=== PATIENT | male | born 1955 | race Caucasian/White ===

== ENCOUNTER 2017-01-03 08:00 | Outpatient (CLI) | payer MEDICARE ==
[2017-01-03 13:29] LABS: BASOPHILS % (AUTO) 0.8 %; EOSINOPHILS # (AUTO) 0.3 10^3/uL (0.0-0.7); EOSINOPHILS % (AUTO) 5.4 %; HCT - HEMATOCRIT 41.3 % (42.0-52.0); HGB - HEMOGLOBIN 14.5 g/dL (14.0-18.0); LYMPHOCYTES % (AUTO) 39.7 %; MEAN CORPUSCULAR HEMOGLOBIN 33.9 pg (27.0-31.0); MEAN CORPUSCULAR HGB CONC 35.1 g/dL (32.0-36.0); MEAN CORPUSCULAR VOLUME 96.5 fL (80.0-94.0); MEAN PLATELET VOLUME 8.8 fL (7.4-11.4); MONOCYTES # (AUTO) 0.5 10^3/uL (0.0-1.0); MONOCYTES % (AUTO) 9.9 %; NEUTROPHILS # (AUTO) 2.3 10^3/uL (1.5-6.6); NEUTROPHILS % (AUTO) 44.2 %; RED BLOOD COUNT 4.28 10^6/uL (4.70-6.10); RED CELL DISTRIBUTION WIDTH 13.3 % (12.0-15.0); UNCORRECTED WHITE BLOOD COUNT 5.1 x10^3/uL; WHITE BLOOD COUNT 5.1 x10^3/uL (4.8-10.8)
[2017-01-03 13:43] LABS: ALBUMIN/GLOBULIN RATIO 1.7 (1.0-2.2); BILIRUBIN,TOTAL 1.6 mg/dL (0.2-1.0); CALCIUM 9.1 mg/dL (8.5-10.3); CREATININE 0.8 mg/dL (0.6-1.2); POTASSIUM 4.1 mmol/L (3.5-5.0); TOTAL PROTEIN 6.8 g/dL (6.7-8.2)
== END 2017-01-03 08:01 | disposition home or self-care (01) ==
LOC: LAB.WCP 08:00
PROVIDERS: ATTEND Family Medicine
DX: I10 Essential (primary) hypertension (principal)
CPT/HCPCS: 36415; 80053; 85025

== ENCOUNTER 2017-06-29 11:12 | Outpatient (CLI) | payer MEDICARE ==
[2017-06-29 14:06] LABS: ALBUMIN/GLOBULIN RATIO 1.7 (1.0-2.2); BILIRUBIN,TOTAL 2.2 mg/dL (0.2-1.0); BUN - BLOOD UREA NITROGEN 14 mg/dL (6-20); CALCIUM 9.1 mg/dL (8.5-10.3); CARBON DIOXIDE - CO2 22 mmol/L (21-32); CHLORIDE 104 mmol/L (101-111); CHOLESTEROL 170 mg/dL; CREATININE 0.9 mg/dL (0.6-1.2); GFR - MDRD 85 (>89); GLUCOSE 114 mg/dL (70-100); HDL CHOLESTEROL 34 mg/dL; LDL/HDL RATIO 2.4 (<3.6); SODIUM 136 mmol/L (135-145); TOTAL PROTEIN 7.2 g/dL (6.7-8.2); TRIGLYCERIDES 263 mg/dL; VLDL CHOLESTEROL 53 mg/dL
== END 2017-06-29 11:13 | disposition home or self-care (01) ==
LOC: LAB.WCP 11:12
PROVIDERS: ATTEND Family Medicine
DX: I10 Essential (primary) hypertension (principal); Z12.5 Encounter for screening for malignant neoplasm of prostate; R73.01 Impaired fasting glucose
CPT/HCPCS: 36415; 80053; 80061; G0103; 84153

== ENCOUNTER 2017-09-25 10:42 | Outpatient (CLI) | payer MEDICARE | END 2017-09-25 10:43 | disposition home or self-care (01) | LOC: SC 10:42 | PROVIDERS: ATTEND Nurse Practitioner Family | DX: G47.33 Obstructive sleep apnea (adult) (pediatric) (principal) | CPT/HCPCS: 99214; G0463; 99212 ==

== ENCOUNTER 2018-04-09 09:56 | Outpatient (CLI) | payer MEDICARE ==
--- NOTE | 2018-04-09 17:27 | MRI Report ---
Reason: CALCIFIC TENDINITIS OF RIGHT SHOULDER Procedure Date: 04/09/2018 Accession Number: [id number] / [id number] Procedure: MRI - Shoulder RT W/O CPT Code: FULL RESULT: EXAM: RIGHT SHOULDER MRI WITHOUT CONTRAST EXAM DATE: 04/09/2018 11:14 AM. CLINICAL HISTORY: Chronic pain. COMPARISON: None. TECHNIQUE: Multiplanar, multisequence T1-weighted and fluid-sensitive sequences of the shoulder without contrast. Other: None. FINDINGS: Acromioclavicular Region: The acromion is type II. Severe acromioclavicular osteoarthropathy is evidenced by bony and capsular hypertrophy and periarticular cyst formation. The coracoacromial and coracoclavicular ligaments are intact. No subacromial/subdeltoid bursal fluid. Glenohumeral Region: No subluxation. No effusion or loose bodies. The articular cartilage is unremarkable. The glenohumeral ligaments and joint capsule are unremarkable. Bone Marrow: No fracture, marrow edema or bone lesions. Labrum: There is a partial tear of the superior labrum at the junction of the biceps anchor on the superior portion of labrum (601/11). Musculature/Rotator Cuff: The subscapularis tendon has a small intrasubstance tear that is 3 mm in height, 11 mm in length, and 20% of the thickness. Intrasubstance tears are in the supraspinatus and infraspinatus tendons measuring up to 14 mm in length and one-third in thickness. There appears to be a more acute tear of the myotendinous junction of the mid infraspinatus (series 601 and 801, image 20). The myotendinous junction appears retracted by 2.1 cm. The teres minor tendon is intact. Mild muscle edema is in the infraspinatus. There is moderate fatty atrophy of the infraspinatus and teres minor muscles. Biceps Tendon: The long head of the biceps tendon and biceps ashish are intact. Other: The subcutaneous tissues are unremarkable. IMPRESSION: 1. Severe acromioclavicular osteoarthropathy. 2. Partial tear of the superior labrum. 3. Intrasubstance tears of the subscapularis, supraspinatus, infraspinatus tendons. There is a more acute tear of the mid myotendinous junction of the infraspinatus. [facility] MUSCULOSKELETAL RADIOLOGY SECTION
--- NOTE | 2018-04-09 17:30 | MRI Report ---
Reason: BURSITIS OF LEFT SHOULDER Procedure Date: 04/09/2018 Accession Number: [id number] / [id number] Procedure: MRI - Shoulder LT W/O CPT Code: FULL RESULT: EXAM: LEFT SHOULDER MRI WITHOUT CONTRAST EXAM DATE: 04/09/2018 11:45 AM. CLINICAL HISTORY: Chronic bilateral shoulder pain. COMPARISON: None. TECHNIQUE: Multiplanar, multisequence T1-weighted and fluid-sensitive sequences of the shoulder without contrast. Other: None. FINDINGS: Acromioclavicular Region: The acromion is type II. Moderate arthropathy as evidenced by bony hypertrophy and capsular hypertrophy. The coracoacromial and coracoclavicular ligaments are intact. A mild amount of fluid is in the subacromial/subdeltoid bursa. Glenohumeral Region: No subluxation. No effusion or loose bodies. The articular cartilage is unremarkable. The glenohumeral ligaments and joint capsule are unremarkable. Bone Marrow: No fracture, marrow edema or bone lesions. Labrum: There is likely a full-thickness tear of the posterior superior labrum as seen on series 601, image 10. Musculature/Rotator Cuff: The subscapularis tendon is unremarkable. The supraspinatus tendon has an intrasubstance tear of the mid fibers that is 8 mm in width, 8 mm in length, and one-third in thickness (51/5; 601/13). The infraspinatus and teres minor tendons are intact. No edema or fatty atrophy. Biceps Tendon: The long head of the biceps tendon and biceps ashish are intact. Other: The subcutaneous tissues are unremarkable. IMPRESSION: 1. Moderate acromioclavicular osteoarthropathy. 2. Mild subacromial/subdeltoid bursitis. 3. Full-thickness tear of the posterior superior labrum. 4. Partial tear of the supraspinatus tendon. [facility] MUSCULOSKELETAL RADIOLOGY SECTION
== END 2018-04-09 09:57 | disposition home or self-care (01) ==
LOC: DI 09:56
PROVIDERS: ATTEND Orthopaedic Surgery
DX: M19.011 Primary osteoarthritis, right shoulder (principal); M19.012 Primary osteoarthritis, left shoulder; S43.491A Other sprain of right shoulder joint, initial encounter; M75.101 Unspecified rotator cuff tear or rupture of right shoulder, not specified as traumatic; M75.52 Bursitis of left shoulder; M75.102 Unspecified rotator cuff tear or rupture of left shoulder, not specified as traumatic; S43.492A Other sprain of left shoulder joint, initial encounter

== ENCOUNTER 2018-09-30 14:33 | Outpatient (CLI) | payer MEDICARE, OTHER | END 2018-09-30 14:34 | disposition home or self-care (01) | LOC: SC 14:33 | PROVIDERS: ATTEND Nurse Practitioner Family | DX: G47.33 Obstructive sleep apnea (adult) (pediatric) (principal); G47.00 Insomnia, unspecified | CPT/HCPCS: 99214; G0463; 99212 ==

== ENCOUNTER 2019-01-28 11:50 | Outpatient (CLI) | payer MEDICARE, OTHER ==
--- NOTE | 2019-01-28 13:12 | XRAY Report ---
Reason: SHORTNESS OF BREATH Procedure Date: 01/28/2019 Accession Number: [id number] / [id number] Procedure: XR - Chest 2 View X-Ray CPT Code: 71202 FULL RESULT: EXAM: CHEST RADIOGRAPHY EXAM DATE: 01/28/2019 12:34 PM. CLINICAL HISTORY: Shortness of breath with cough for 3 months. Burning in chest on coughing for 3 weeks. COMPARISON: CHEST 06/11/2006 11:31 AM. TECHNIQUE: 2 views. FINDINGS: Lungs/Pleura: No focal opacities evident. No pleural effusion. No pneumothorax. Normal volumes. Mediastinum: The cardiac silhouette is within normal limits for size. Other: No hiatal hernia is definitely seen. IMPRESSION: No acute cardiopulmonary abnormality is detected. [facility]
== END 2019-01-28 11:51 | disposition home or self-care (01) ==
LOC: DI 11:50
PROVIDERS: ATTEND Specialist
DX: R06.02 Shortness of breath (principal)
CPT/HCPCS: 71046

== ENCOUNTER 2019-09-24 14:12 | Outpatient (CLI) | payer MEDICARE, OTHER | END 2019-09-24 14:13 | disposition home or self-care (01) | LOC: RT 14:12 | PROVIDERS: ATTEND Orthopaedic Surgery | DX: Z01.818 Encounter for other preprocedural examination (principal) | CPT/HCPCS: 93005 ==

== ENCOUNTER 2019-12-03 07:34 | Outpatient (CLI) | payer MEDICARE, OTHER | END 2019-12-03 07:35 | disposition home or self-care (01) | LOC: DI 07:34 | PROVIDERS: ATTEND Family Medicine | DX: I25.2 Old myocardial infarction (principal) | CPT/HCPCS: 93306 ==

== ENCOUNTER 2020-01-20 10:57 | Outpatient (CLI) | payer MEDICARE, OTHER ==
--- NOTE | 2020-01-20 11:18 | SLEEP CARE CONSULTATION ---
Information from patient questionnaire entered by Sue Shukla. I have reviewed and concur with the information entered by Sue Shukla. This document represents the service I personally performed and the decisions made by me, Bel Escobar MD, [facility]. History of Present Illness Service Date and Time: 01/20/2020 1057 Previous diagnosis: Very Severe, Obstructive Sleep Apnea-Hypopnea Syndrome AHI: 67 (in 2003) Reason for follow up: annual (last seen 2018) Equipment type: CPAP Equipment obtained from: [facility] Prior sleep studies: Yes Year and Where: 2003 - [place], [place] Type of Sleep Study: Polysomnography HPI additional information: HPI: Mr. Jimenez returns today to follow up on the nasal CPAP therapy. He was diagnosed to have severe obstructive sleep apnea-hypopnea syndrome. The patient wears a Respironics DreamWear nasal cushion mask. He reports using the device nightly and all through the night. The compliance report shows usage in 180 nights out of the past 180 nights, averaging 13.5 hours a night (he lies down to rest during the day and wears the CPAP even though he is not sleeping). The > 4 hour compliance rate for the past 180 days is 100%. He complained of no particular problem with the device such as soreness on the face, dry nose, epistaxis, nasal congestion or headache. He thinks that the pressure of 10 15 cmH2O is comfortable. On the CPAP therapy he notices improvement in his sleep quality, and that he wakes up feeling fresher in the morning and more awake/alert during the day. His notices no snore at all. The average residual AHI is 2.1; and average time in large leak per day is 0. The 90th percentile pressure is 11.6 cmH2O. CPAP Compliance Data - Data Reviewed with Patient Compliance rate %: 100 (180 days) Current pressure setting (cmH2O): 10-15 Humidity settin Heated hose settin Average residual AHI: 2.1 Average large leak: 0 Subjective Initial [place] Sleepiness Scale score: 4 (in 2008) Current [place] Sleepiness Scale score: 6 Allergies and Home Medications Drug allergies reviewed: Yes Home medication list reviewed: Yes Physical Exam Vital signs obtained and entered by: Detailed physical exam is deferred because the Coronavirus epidemic. Height: 5 ft 10 in Impression and Plan IMPRESSION: 1. Obstructive Sleep Apnea-Hypopnea Syndrome, severe (AHI was 67), with the patient doing well on nasal CPAP therapy. He has excellent compliance and significant clinical improvement. The current pressure appears effective and comfortable. His mask fits well. Overall, he is very satisfied with treatment and plans to continue with it long-term. Because the CPAP is now older than the useful life of 5 years, I will order the patient a new one and make it an autoCPAP set between 10 and 15 cmH2O. PLAN: 1. Prescription made for an autoCPAP, heated humidifier, and related supplies. The prescription will be sent to a new durable medical supplier because he is unhappy with [facility]. 2. Try to lose weight 3. Try ResMed N30i mask 4. Return for follow up after one month on the new machine.
== END 2020-01-20 10:58 | disposition home or self-care (01) ==
LOC: SC 10:57
PROVIDERS: ATTEND Internal Medicine Pulmonary Disease
DX: G47.33 Obstructive sleep apnea (adult) (pediatric) (principal)
CPT/HCPCS: 99212; 99213

== ENCOUNTER 2020-01-20 13:15 | Outpatient (CLI) | payer MEDICARE, OTHER ==
[~2020-01-20 13:15] MED LIST: ALBUTEROL 1 PUFF INH STA
== END 2020-01-20 13:16 | disposition home or self-care (01) ==
LOC: RT 13:15
PROVIDERS: ATTEND Family Medicine
DX: R06.02 Shortness of breath (principal); G47.33 Obstructive sleep apnea (adult) (pediatric)
CPT/HCPCS: 94060; 94664; 99213; G0463; 99212

== ENCOUNTER 2020-01-21 12:34 | Outpatient (CLI) | payer MEDICARE, OTHER | END 2020-01-21 12:35 | disposition home or self-care (01) | LOC: DI 12:34 | PROVIDERS: ATTEND Family Medicine | DX: Z53.9 Procedure and treatment not carried out, unspecified reason (principal) ==

== ENCOUNTER 2020-02-03 08:45 | Outpatient (CLI) | payer MEDICARE, OTHER ==
[2020-02-03] MEDS ORDERED: AMINOPHYLLINE 250 MG/10 ML VIAL ONE (09:56)
[2020-02-03] MEDS ORDERED: REGADENOSON 0.4 MG/5 ML SYRINGE IVP ONE ×2 (09:56→11:46)
--- NOTE | 2020-02-03 12:00 | CARDIAC PROCEDURE NOTE ---
DATE OF SERVICE: 02/03/2020 Physician: Hina Turner MD, [facility] INDICATION: Chest pain. CARDIAC RISK FACTORS: Male gender, hypertension. DESCRIPTION OF PROCEDURE: After signing informed consent, the patient underwent a pharmaceutical stress test with Lexiscan and nuclear myocardial perfusion imaging. RESTING HEART RATE: 71. PEAK HEART RATE: 88. RESTING BLOOD PRESSURE: 128/75. PEAK BLOOD PRESSURE: 147/91. Lexiscan was infused per protocol. The patient had brief flushing, shortness of breath, "throat tightness" and "burning central chest pain." The symptoms resolved spontaneously in 2 minutes. Oxygen saturation was 96-98% on room air throughout the test. RESTING EKG: Normal sinus rhythm, left atrial enlargement, flat T-waves in leads V2 through V4. EKG AT PEAK: No new ST segment or T-wave changes. SUMMARY 1. Abnormal resting EKG. 2. No new ischemic EKG changes occurred with pharmaceutical stress. 3. Nuclear images reported separately. 4. This patient's cardiac risk based on the above: Low-Moderate. cc: DO Jordi Coleman MD TD: 02/03/2020 11:55 MTDD
--- NOTE | 2020-02-03 17:24 | Nuclear Medicine Report ---
PROCEDURE: Rest and pharmacological stress myocardial perfusion SPECT with gated imaging and ejection fraction INDICATIONS: CHEST PAIN, PREOP RADIOPHARMACEUTICAL: 10.5 mCi Tc-99m myoview IV at rest and 33.2 mCi Tc-99m myoview IV at peak exerc ise. Rub-onz-eqmctifa was performed. TECHNIQUE: Radiopharmaceutical was injected at peak stress test, and also at rest. SPECT images wer e obtained. SPECT myocardial perfusion images were displayed in short axis, horizontal long axis, an d vertical long axis views. Gated images were reviewed using AutoQUANT software. COMPARISON: None available. FINDINGS: Raw data: There is good myocardial labeling by radiotracer. No significant motion artifacts. Lung- to-heart ratio is 0.37 (normal is less than 0.38 for tetrafosmin tracer). Left ventricle function: Gated images demonstrate normal left ventricle wall thickening. No segment al wall motion abnormality. No transient ischemic dilation; TID is 1.01 (normal less than 1.3). The left ventricle end-diastolic volume is normal. Left ventricle stress ejection fraction is 73%; norm al values are above 45%. Myocardial perfusion: There is normal distribution of activity in the left and right ventricular robyn cardium. No fixed or reversible perfusion defects. IMPRESSION: 1. Normal myocardial perfusion images. No perfusion defect to suggest myocardial ischemia or infarct. 2. Normal left ventricle volume and systolic function. PQRS ATTESTATIONS: Measure 322 - Is this imaging test primarily performed on a low-risk surgery patient for preoperative evaluation within 30 days preceding their low-risk non-cardiac surgery? Low-risk surgery is defined as cardiac or myocardial infarction less than 1%, including (but not limited to) endoscopic pr ocedures, superficial procedures, cataract surgery, and excisional breast surgery: Answer: No Measure 323 - Is this imaging test performed primarily for the monitoring of an asymptomatic patient who had percutaneous coronary intervention on the visit date or within 2 years of the visit date? An swer: No Measure 324 - Is this imaging test performed primarily for the initial detection and risk assessment on an asymptomatic, low coronary heart disease patient? Low CHD risk definition = clinicians should consider the maximum number of available patient factors used to estimate risk based on [place] (A TP III criteria), typically age, gender, diabetes, smoking status, and use of blood pressure medicati on, and integrate age appropriate estimates for missing elements, such as LDL or standard blood press ure. Answer: No Reviewed by: Alonzo Hernandez MD on 02/03/2020 5:23 PM PDT Approved by: Alonzo Hernandez MD on 02/03/2020 5:23 PM PDT Station ID: [id number]
== END 2020-02-03 08:46 | disposition home or self-care (01) ==
LOC: DI 08:45
PROVIDERS: ATTEND Family Medicine
DX: Z01.810 Encounter for preprocedural cardiovascular examination (principal); R94.31 Abnormal electrocardiogram [ECG] [EKG]; I10 Essential (primary) hypertension
CPT/HCPCS: 78452; 93017; A9500; J2785

== ENCOUNTER 2021-02-28 13:51 | Outpatient (CLI) | payer MEDICARE, OTHER ==
--- NOTE | 2021-02-28 17:05 | SLEEP CARE CONSULTATION ---
Information from patient questionnaire entered by Sue Shukla. I have reviewed and concur with the information entered by Sue Shukla. This document represents the service I personally performed and the decisions made by me, Bel Escobar MD, [facility]. History of Present Illness Service Date and Time: 02/28/2021 1351 Previous diagnosis: Very Severe, Obstructive Sleep Apnea-Hypopnea Syndrome AHI: 67 (in 2003) Reason for follow up: annual (last seen 01/2020) Equipment type: CPAP Equipment obtained from: [facility] Mask style: Nasal Mask brand: Respironics (Dreamwear) Prior sleep studies: Yes Year and Where: 2003 [facility] additional information: HPI: Mr. Jimenez returns today to follow up of the nasal CPAP therapy. He was diagnosed to have severe obstructive sleep apnea-hypopnea syndrome. The patient wears a Respironics DreamWear nasal cushion mask. He reports using the device nightly and all through the night. The compliance report shows usage in 180 nights out of the past 180 nights, averaging 10.5 hours a night (he lies down to rest during the day and wears the CPAP even though he is not sleeping). The > 4 hour compliance rate for the past 180 days is 99.4%. He complained of no particular problem with the device such as soreness on the face, dry nose, epistaxis, nasal congestion or headache. He thinks that the pressure of 10 15 cmH2O is comfortable. On the CPAP therapy he notices improvement in his sleep quality, and that he wakes up feeling fresher in the morning and more awake/alert during the day. His notices no snore at all. The average residual AHI is 1.4; and average time in large leak per day is 28 seconds. The 90th percentile pressure is 13.1 cmH2O. Subjective Initial [place] Sleepiness Scale score: 4 (in 2008) Current [place] Sleepiness Scale score: 3 Allergies and Home Medications Known drug allergies: Yes Drug allergies reviewed: Yes Home medication list reviewed: Yes Review of Systems Review of systems same as previous: Yes Physical Exam Height: 5 ft 10 in Impression and Plan IMPRESSION: 1. Obstructive Sleep Apnea-Hypopnea Syndrome, very severe (AHI was 67), with the patient doing well on nasal CPAP therapy. He has excellent compliance and significant clinical improvement. The current pressure appears effective and comfortable. His mask fits well. Overall, he is very satisfied with treatment and plans to continue with it long-term. No adjustment is necessary today. In regards to the recall on all Gerard Respironics DreamStation devices, we discussed the risks and benefits of stopping versus continuing to use the device. In severe cases, it appears the benefits outweigh the risks and it is reasonable to continue until the replace part or machine becomes available. Symptoms that could be related to the recalled sound abatement foam piece are headache, nausea, chest tightness, and upper airway irritation. The patients should also look for debris in the air outlet, water reservoir, and hose. If found, the device should not be used. In [id number] cases, the patients should refrain from using the device. The patient should register the device on [email or web address]. PLAN: 1. Continue with autoCPAP set at 10 15 cmH2O 2. Try to lose weight 3. Ward his Respironics DreamStation autoCPAP online to get a replacement. 4. Return for follow up after one month of using the CPAP. Follow up recommended for: Weight management Visit Type: In Office Time Spent with Patient (minutes): 15 Provider Statement: I spent 100% of the Face to Face Visit with the patient with greater than 50% spent counseling the patient and coordination of care.
== END 2021-02-28 13:52 | disposition home or self-care (01) ==
LOC: SC 13:51
PROVIDERS: ATTEND Internal Medicine Pulmonary Disease
DX: G47.33 Obstructive sleep apnea (adult) (pediatric) (principal)
CPT/HCPCS: 99212; G0463

== ENCOUNTER 2022-05-01 11:09 | Outpatient (CLI) | payer MEDICARE, OTHER ==
--- NOTE | 2022-05-01 13:34 | SLEEP CARE CONSULTATION ---
Information from patient questionnaire entered by Mirian Delarosa. I have reviewed and concur with the information entered by Mirian Delarosa. This document represents the service I personally performed and the decisions made by me, Bel Escobar MD, [facility]. History of Present Illness Service Date and Time: 05/01/2022 1109 Previous diagnosis: Very Severe, Obstructive Sleep Apnea-Hypopnea Syndrome AHI: 67 (in 2003) Reason for follow up: annual (LAST SEEN 03/02) Equipment type: CPAP (DREAMSTATION) Equipment obtained from: [facility] Mask style: Nasal Prior sleep studies: Yes Year and Where: 2003 - [facility] additional information: Mr. Jimenez returns today to an annual follow up of the nasal CPAP therapy. He was diagnosed to have severe obstructive sleep apnea-hypopnea syndrome. The patient wears a RespirSoricimeds DreamWear nasal cushion mask. He reports using the device nightly and all through the night. The machine is a replacement one for the recalled unit. The compliance report shows usage in 180 nights out of the past 180 nights, averaging 11.7 hours a night (he lies down to rest during the day and wears the CPAP even though he is not sleeping). The > 4 hour compliance rate for the past 180 days is 99.4%. He complained of no particular problem with the device such as soreness on the face, dry nose, epistaxis, nasal congestion or headache. He thinks that the pressure of 10 15 cmH2O is comfortable. On the CPAP therapy he notices improvement in his sleep quality, and that he wakes up feeling fresher in the morning and more awake/alert during the day. His notices no snore at all. The average residual AHI is 2.4; and average time in large leak per day is 10 minutes. The 90th percentile pressure is 13 cmH2O. Sleep Study - Results Prior sleep studies: Yes Year and Where: 2003 - [facility] in [place], [place] CPAP Compliance Data - Data Reviewed with Patient Average duration of nightly device use: 11 hours, 40 minutes, 41 seconds Compliance rate %: 99.4 (10/30/21 to 04/27/22) Current pressure setting (cmH2O): 10-15 Average residual AHI: 2.4 Subjective Initial [place] Sleepiness Scale score: 4 (in 2008) Current [place] Sleepiness Scale score: 5 (05/01/22) Allergies and Home Medications Drug allergies reviewed: Yes Home medication list reviewed: Yes Allergy and home medication list: Allergies nitroglycerin Adverse Reaction (Verified 01/06/15 11:34) Unknown Review of Systems Review of systems same as previous: Yes Physical Exam Vital signs obtained and entered by: MARIBEL BHANDARI Blood Pressure: 132/70 (RIGHT ARM ) Cuff size: regular Heart Rate: 69 O2 Saturation: 97 Height: 5 ft 10 in Weight: 233 lb Body Mass Index: 33.4 BMI Classification: Obese Impression and Plan IMPRESSION: 1. Obstructive Sleep Apnea-Hypopnea Syndrome, very severe (AHI was 67), with the patient doing well on nasal CPAP therapy. He has excellent compliance and significant clinical improvement. The current pressure appears effective and comfortable. His mask fits well. Overall, he is very satisfied with treatment and plans to continue with it long-term. No adjustment is necessary today. PLAN: 1. Continue with autoCPAP set at 10 15 cmH2O 2. Try to lose weight 3. Return for follow up in a year or earlier if there is any problem. Continue with device pressure at (cmH2O): 10 - 15 Counseling Topics: Weight control Follow up with Sleep Care in: 1 year Visit Type: In Office Time Spent with Patient (minutes): 15 Provider Statement: I spent 100% of the Face to Face Visit with the patient with greater than 50% spent counseling the patient and coordination of care.
[2022-05-01 13:35] VITALS: BP 132/70
== END 2022-05-01 11:10 | disposition home or self-care (01) ==
LOC: SC 11:09
PROVIDERS: ATTEND Internal Medicine Pulmonary Disease
DX: G47.33 Obstructive sleep apnea (adult) (pediatric) (principal); E66.9 Obesity, unspecified; Z68.33 Body mass index [BMI] 33.0-33.9, adult
CPT/HCPCS: 99212; G0463

== ENCOUNTER 2023-03-06 16:58 | Outpatient (CLI) | payer MEDICARE, OTHER ==
--- NOTE | 2023-03-07 18:17 | Ultrasound Report ---
PROCEDURE: Duplex Ext Veins Left INDICATIONS: PAIN IN LEFT KNEE TECHNIQUE: Real-time imaging, as well as color and pulse Doppler interrogation, were performed of the lower extr emity deep veins from the inguinal ligament to the popliteal fossa. COMPARISON: None. FINDINGS: The deep veins are normally compressible, and free of intraluminal thrombus. Color and pu lse Doppler demonstrate normal phasic intraluminal flow. There is normal augmentation response to di stal compression maneuver. There is a large heterogeneous complex structure present in the posterior lateral left lower extremit y, centered at approximately the knee, measuring 8.4 x 2.3 x 5.0 cm, possibly representing hematoma. IMPRESSION: 1. No evidence of left lower extremity DVT. 2. Probable large hematoma centered at the knee. Comment: Recommend clinical follow-up and possible repeat ultrasound to demonstrate decrease in size of this structure. Reviewed by: Jv Bocanegra MD on 03/07/2023 6:16 PM PDT Approved by: Jv Bocanegra MD on 03/07/2023 6:16 PM PDT Station ID: [id number]
--- NOTE | 2023-03-07 18:30 | Ultrasound Report ---
PROCEDURE: Duplex Lwr Ext Arterial LT INDICATIONS: PAIN IN LEFT KNEE TECHNIQUE: Color and pulse Doppler interrogation was performed of the left lower extremity arterial system, with image documentation. COMPARISON: None FINDINGS: Common femoral artery: 103 cm/sec, with triphasic flow. Deep femoral artery: 62.7 cm/sec, with triphasic flow. Proximal superficial femoral artery: 87.6 cm/sec, with triphasic flow. Mid superficial femoral artery: 106.5 cm/sec, with triphasic flow. Distal superficial femoral artery: 90.9 cm/sec, with triphasic flow. Popliteal artery: 77.6 cm/sec, with triphasic flow. Posterior tibial artery: 106.8 cm/sec, with triphasic flow. Anterior tibial artery/dorsalis pedis: 99.6/72.8 cm/sec, with triphasic flow. Blanc-scale imaging description: Widely patent vessels IMPRESSION: Unremarkable duplex arterial ultrasound of the left lower extremity. Reviewed by: Jv Bocanegra MD on 03/07/2023 6:28 PM PDT Approved by: Jv Bocanegra MD on 03/07/2023 6:28 PM PDT Station ID: [id number]
== END 2023-03-06 16:59 | disposition home or self-care (01) ==
LOC: DI 16:58
PROVIDERS: ATTEND Student in an Organized Health Care Education/Training Program
DX: M25.562 Pain in left knee (principal)

== ENCOUNTER 2023-07-20 09:31 | Emergency (ER) | payer MEDICARE, OTHER ==
[2023-07-20 10:50] LABS: B. PARAPERTUSSIS- RESP PCR PAN NOT DETECTED; B. PERTUSSIS- RESP PCR PANEL NOT DETECTED; C. PNEUMONIAE- RESP PCR PANEL NOT DETECTED; CORONAVIRUS 229E-RESP PCR NOT DETECTED; CORONAVIRUS HKU1-RESP PCR NOT DETECTED; CORONAVIRUS NL63-RESP PCR NOT DETECTED; CORONAVIRUS OC43-RESP PCR NOT DETECTED; HUMAN METAPNEUMOVIRUS NOT DETECTED; INFLUENZA A- RESP PCR PANEL NOT DETECTED; INFLUENZA B - RESP PCR PANEL NOT DETECTED; M. PNEUMONIAE- RESP PCR PANEL NOT DETECTED; PARAINFLUENZA VIRUS 1 NOT DETECTED; PARAINFLUENZA VIRUS 2 NOT DETECTED; PARAINFLUENZA VIRUS 3 NOT DETECTED; PARAINFLUENZA VIRUS 4 NOT DETECTED; RHINOVIRUS/ENTEROVIRUS DETECTED; RSV- RESP PCR PANEL NOT DETECTED; SARS-CoV-2 -RESP PCR PANEL NOT DETECTED
--- NOTE | 2023-07-20 11:18 | XRAY Report ---
PROCEDURE: Chest 2 View X-Ray INDICATIONS: Cough TECHNIQUE: 2 views of the chest were acquired. COMPARISON: None. FINDINGS: Surgical changes and devices: None. Lungs and pleura: No pleural effusions or pneumothorax. Lungs are clear. Mediastinum: Mediastinal contours appear normal. Heart size is normal. Bones and chest wall: No suspicious bony lesions. Overlying soft tissues appear unremarkable. IMPRESSION: No acute cardiopulmonary process. Reviewed by: Alonzo Hernandez MD on 07/20/2023 11:17 AM [facility] Approved by: Alonzo Hernandez MD on 07/20/2023 11:17 AM [facility] Station ID: [id number]
--- NOTE | 2023-07-20 11:57 | ED Physician Documentation ---
PD HPI URI - Stated complaint Stated Complaint: SOA/COUGH - Chief complaint Chief Complaint: Resp - History obtained from History obtained from: Patient - History of Present Illness Timing - onset: How many days ago (3) Timing duration: Days (3) Timing details: Gradual onset, Still present Associated symptoms: Nasal congestion, Productive cough, Dyspnea Contributing factors: Sick contact (grandchildren sick with similar at home.) Improves by: Rest Worsened by: Activity, Breathing Similar symptoms before: Diagnosis (bronchitis, RAD, afib) Recently seen: Surgery (Had afib ablation done Jun 04, 2023.) - Additional information Additional information: 67-year-old Guy Jimenez is sent here from the clinic for expedited workup and treatment of cough with shortness of breath. The patient has had an ablation for atrial fibrillation done over a month ago. He had been doing well with that. He relates now a 2 to 3-day history of cough productive of yellow phlegm and shortness of breath. He has a history previously of reactive airway disease and shortness of breath with exertion that has been evaluated by pulmonology and they did not think he had reactive airway disease. He does have an inhaler that he has used previously episodically and he has not used it for more than 6 months. Review of Systems Constitutional: denies: Fever Eyes: denies: Decreased vision Ears: denies: Ear pain Nose: reports: Rhinorrhea / runny nose, Congestion Throat: denies: Sore throat Cardiac: denies: Chest pain / pressure, Palpitations Respiratory: reports: Dyspnea, Cough GI: denies: Nausea, Vomiting, Constipation, Diarrhea : denies: Dysuria, Frequency PD PAST MEDICAL HISTORY - Past Medical History Past Medical History: Yes Cardiovascular: Hypertension Respiratory: Shortness of breath, Sleep apnea, CPAP use Endocrine/Autoimmune: None GI: GERD, Colon polyps, Chronic diarrhea, Other : Kidney stones HEENT: None Psych: Anxiety, Obsessive compulsive disorder Musculoskeletal: Osteoarthritis, Chronic back pain Derm: None - Past Surgical History Past Surgical History: Yes General: Colonoscopy, Other Ortho: Hip replacement, Arthroscopic surgery - Present Medications Home Medications: Ambulatory Orders Medication Instructions Recorded Confirmed ALPRAZolam [Xanax] 0.5 mg PO DAILY 01/06/15 01/06/15 Cholestyramine [Questran] 4 mg PO DAILY 01/06/15 01/06/15 Esomeprazole Magnesium [Nexium] 1 tab PO DAILY 01/06/15 01/06/15 Fluticasone [Flonase] 2 spray ROX DAILY 01/06/15 01/06/15 HYDROcodone/ACET 7.5/325 [[place] 1 tab PO DAILY 01/06/15 01/06/15 7.5/325] PARoxetine [Paxil] 20 mg PO DAILY 01/06/15 01/06/15 atenoloL [Atenolol] 1 tab PO DAILY 01/06/15 01/06/15 Amox/Clav 875/125 [Augmentin] 1 each PO Q12H #14 tablet 07/20/23 Benzonatate [Tessalon] 100 mg PO TID PRN #30 cap 07/20/23 predniSONE [Deltasone] 40 mg PO DAILY 5 Days #10 tablet 07/20/23 - Allergies Allergies/Adverse Reactions: Allergies Allergy/AdvReac Type Severity Reaction Status Date / Time nitroglycerin AdvReac Unknown Verified 05/07/23 10:45 - Social History Does the pt smoke?: No Smoking Status: Never smoker PD ED PE NORMAL - Vitals Vital signs reviewed: Yes (hypertensive ) - General General: Alert and oriented X 3, No acute distress, Well developed/nourished - HEENT HEENT: Atraumatic, PERRL, EOMI, Ears normal, Pharynx benign, Other (dry mucous membranes) - Neck Neck: Supple, no meningeal sign, No bony TTP - Cardiac Cardiac: RRR, No murmur - Respiratory Respiratory: No respiratory distress, Other (inpritory/expritory wheezes) - Abdomen Abdomen: Soft, Non tender - Back Back: No CVA TTP, No spinal TTP - Derm Derm: Normal color, Warm and dry, No rash - Extremities Extremities: No deformity, No edema - Neuro Neuro: Alert and oriented X 3, 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 parapertussis DNA (PCR) NOT DETECTED Nasal Coronavir 229E PCR NOT DETECTED Nasal Coronavir HKU1 PCR NOT DETECTED Nasal Coronavir NL63 PCR NOT DETECTED Nasal Coronavir OC43 PCR NOT DETECTED Nasal Enterovir/Rhinovir PCR DETECTED A Nasal Influenza B PCR NOT DETECTED Nasal Influenza A PCR NOT DETECTED Nasal Parainfluen 1 PCR NOT DETECTED Nasal Parainfluen 2 PCR NOT DETECTED Nasal Parainfluen 3 PCR NOT DETECTED Nasal Parainfluen 4 PCR NOT DETECTED Nasal RSV (PCR) NOT DETECTED Nasal B.pertussis DNA PCR NOT DETECTED Nasal C.pneumoniae (PCR) NOT DETECTED Rox Human Metapneumo PCR NOT DETECTED Nasal M.pneumoniae (PCR) NOT DETECTED Nasal SARS-CoV-2 (PCR) NOT DETECTED - Rads (name of study) chest Relevant Findings:: Prelim report reviewed (Impression: No acute cardiopulmonary process.), EMP independent interpretation of test PD Medical Decision Making - ED course Complexity details: reviewed results, re-evaluated patient, considered differential, d/w patient, d/w family ED course: 67-year-old male with a prior history of reactive airway disease has developed a cough congestion and shortness of breath and he has had a recent ablation done. He was sent to the emergency department for expedited workup and treatment. We were able to obtain a chest x-ray and nasal swab the nasal swab was positive for rhinovirus. The patient does have some wheezing on examination. He does not require treatment at this time. He does have an inhaler at home and he will attempt to use this. We will place him on a short course of prednisone and he is coughing up yellow and green phlegm we will place a course of clean up antibiotic as well. Departure - Departure Disposition: Home, Self Care Clinical Impression: Viral URI with cough Condition: Stable Instructions: ED Bronchitis Asthmatic, ED URI Viral Follow-Up: Thien Boggs DO [Primary Care Provider] - Prescriptions: Amox/Clav 875/125 [Augmentin] 1 each PO Q12H #14 tablet predniSONE [Deltasone] 40 mg PO DAILY 5 Days #10 tablet Benzonatate [Tessalon] 100 mg PO TID PRN #30 cap PRN Reason: Cough Comments: Guy, today we found rhinovirus in the nasal swab we did. This is consistent with the cold virus. You are coughing up yellow and green phlegm and have some coarseness to your air sounds. I am recommending we place you on a short course of prednisone and an antibiotic. The antibiotic is for cleaning up of your usual microbiome that will get out of control when there is inflammation in the tissues. It does sound like you are wheezing and I would recommend trying your albuterol inhaler for some relief. We expect with treatment that you are shortness of breath will improve over the next 2 days and the cough and sputum improving over the next 5 days. Discharge Date/Time: 07/20/23 12:31
[2023-07-20 12:33] VITALS: BP 136/87; O2SAT 99
== END 2023-07-20 12:31 | disposition home or self-care (01) ==
LOC: ED 09:31
DX: J06.9 Acute upper respiratory infection, unspecified (principal); I10 Essential (primary) hypertension; Z20.822 Contact with and (suspected) exposure to COVID-19
CPT/HCPCS: 87633; 99283; 99284

== ENCOUNTER 2023-10-23 09:11 | Emergency (ER) | payer MEDICARE, OTHER ==
[2023-10-23 09:34] VITALS: BP 179/85; O2SAT 95
--- NOTE | 2023-10-23 09:41 | XRAY Report ---
PROCEDURE: Wrist 3+V LT INDICATIONS: trauma TECHNIQUE: 4 views of the wrist were acquired. COMPARISON: None. FINDINGS: Bones: No fractures or dislocations. No suspicious bony lesions. Soft tissues: No suspicious soft tissue calcifications or masses. IMPRESSION: No acute fracture. No osseous lesion. If symptoms and/or clinical suspicion for pathology continue, f urther assessment with repeat plain films, or advanced imaging (e.g., CT, MRI, or bone scan) is recom mended for further assessment. Reviewed by: Aren Sy MD on 10/23/2023 9:40 AM PDT Approved by: Aren Sy MD on 10/23/2023 9:40 AM PDT Station ID: [id number]
--- NOTE | 2023-10-23 10:04 | ED Physician Documentation ---
PD HPI UPPER EXT INJURY - Stated complaint Stated Complaint: LT WRIST INJ - Chief complaint Chief Complaint: Ext Problem - History obtained from History obtained from: Patient - Additonal information Additional information: Patient is a 68-year-old male presenting for evaluation of left wrist pain. Patient states his initial pain started September 22 when he was assisting his son-in-law while working on a car. He reports hitting his wrist against part of the [place] that was holding up the car as he was trying to get up. Since that time he developed gradual pain in the left wrist. He did see his PCP for other reasons but also mentioned the issues with his wrist and thoughts that it were related to just inflammation. No x-ray was obtained. This morning he reports having sudden worsening pain while putting on his underwear and feeling a pop in the area. No longer takes a blood thinner. Did take 500 of acetaminophen this morning. Review of Systems Constitutional: denies: Fever Cardiac: denies: Chest pain / pressure Respiratory: denies: Dyspnea GI: denies: Abdominal Pain Musculoskeletal: reports: Extremity pain Neurologic: denies: Head injury PD PAST MEDICAL HISTORY - Past Medical History Past Medical History: Yes Cardiovascular: Hypertension, Atrial fibrillation Respiratory: Shortness of breath, Sleep apnea, CPAP use Endocrine/Autoimmune: None GI: GERD, Colon polyps, Chronic diarrhea, Other : Kidney stones HEENT: None Psych: Anxiety, Obsessive compulsive disorder Musculoskeletal: Osteoarthritis, Chronic back pain Derm: None - Past Surgical History Past Surgical History: Yes General: Colonoscopy, Other Ortho: Hip replacement, Arthroscopic surgery Cardiovascular: Other - Present Medications Home Medications: Ambulatory Orders Medication Instructions Recorded Confirmed ALPRAZolam [Xanax] 0.5 mg PO DAILY 01/06/15 01/06/15 Cholestyramine [Questran] 4 mg PO DAILY 01/06/15 01/06/15 Esomeprazole Magnesium [Nexium] 1 tab PO DAILY 01/06/15 01/06/15 Fluticasone [Flonase] 2 spray ROX DAILY 01/06/15 01/06/15 HYDROcodone/ACET 7.5/325 [[place] 1 tab PO DAILY 01/06/15 01/06/15 7.5/325] PARoxetine [Paxil] 20 mg PO DAILY 01/06/15 01/06/15 atenoloL [Atenolol] 1 tab PO DAILY 01/06/15 01/06/15 Amox/Clav 875/125 [Augmentin] 1 each PO Q12H #14 tablet 07/20/23 Benzonatate [Tessalon] 100 mg PO TID PRN #30 cap 07/20/23 predniSONE [Deltasone] 40 mg PO DAILY 5 Days #10 tablet 07/20/23 - Allergies Allergies/Adverse Reactions: Allergies Allergy/AdvReac Type Severity Reaction Status Date / Time nitroglycerin AdvReac Unknown Verified 10/23/23 09:28 - Social History Does the pt smoke?: No Smoking Status: Never smoker Does the pt drink ETOH?: No Does the pt have substance abuse?: No - POLST Patient has POLST: No PD ED PE NORMAL - General General: Alert and oriented X 3, No acute distress, Well developed/nourished - HEENT HEENT: Atraumatic, Moist mucous membranes, Pharynx benign - Neck Neck: Supple, no meningeal sign - Cardiac Cardiac: Other (Left radial pulse, strong, regular) - Respiratory Respiratory: No respiratory distress - Extremities Extremities: Other (Tenderness to lateral left wrist and pain on range of motion, snuffbox tenderness, no elbow tenderness, no erythema) - Neuro Neuro: Alert and oriented X 3, No motor deficit, No sensory deficit, Normal speech Results - Vitals Vitals: Vital Signs - 24 hr 10/23/23 09:24 Temperature 36.4 C L Heart Rate 93 Respiratory 20 Rate Blood Pressure 179/85 H O2 Saturation 95 Oxygen O2 Source Room air PD Medical Decision Making - ED course Complexity details: reviewed results, d/w patient ED course: Pt with L wrist pain after trauma 1 month ago, again with some strain today. Neurovascularly intact. XR reviewed and no fracture/dislocation. Some pain in snuffbox. Pt given thumb spica and counseled on need for follow up. Declines narcotic pain meds here. Departure - Departure Disposition: 01 Home, Self Care Clinical Impression: Left wrist sprain Condition: Stable Instructions: ED Fx Wrist Navicular Poss, ED Splint Care Velcro Follow-Up: Thien Boggs DO [Primary Care Provider] - Within 1 week Comments: Your x-ray does not show signs of a broken bone but sometimes a fracture may not be seen on initial x-ray. Given the location of your pain we have opted to place you into a Velcro splint and I would recommend close follow-up with your primary care provider in the next week for recheck and possible repeat x- rays.Continue with acetaminophen 1000 mg every 6-8 hours as needed for pain along with ice, elevation and rest. IMPRESSION: No acute fracture. No osseous lesion. If symptoms and/or clinical suspicion for pathology continue, further assessment with repeat plain films, or advanced imaging (e.g., CT, MRI, or bone scan) is recommended for further assessment. Forms: PCP List Discharge Date/Time: 10/23/23 10:14
== END 2023-10-23 10:14 | disposition home or self-care (01) ==
LOC: ED 09:11
DX: S63.502A Unspecified sprain of left wrist, initial encounter (principal); X58.XXXA Exposure to other specified factors, initial encounter; I10 Essential (primary) hypertension; I48.91 Unspecified atrial fibrillation
CPT/HCPCS: 99283

== ENCOUNTER 2024-03-04 15:17 | Emergency (ER) | payer MEDICARE, OTHER ==
[2024-03-04 16:50] LABS: BASOPHILS # (AUTO) 0.1 10^3/uL (0.0-0.1); EOSINOPHILS # (AUTO) 0.4 10^3/uL (0.0-0.7); EOSINOPHILS % (AUTO) 5.1 %; HCT - HEMATOCRIT 44.6 % (42.0-52.0); HGB - HEMOGLOBIN 15.2 g/dL (14.0-18.0); LYMPHOCYTES # (AUTO) 2.2 10^3/uL (1.5-3.5); LYMPHOCYTES % (AUTO) 30.9 %; MEAN CORPUSCULAR HEMOGLOBIN 33.6 pg (27.0-31.0); MEAN CORPUSCULAR HGB CONC 34.1 g/dL (32.0-36.0); MEAN CORPUSCULAR VOLUME 98.5 fL (80.0-94.0); MEAN PLATELET VOLUME 9.2 fL (7.4-11.4); MONOCYTES # (AUTO) 0.6 10^3/uL (0.0-1.0); MONOCYTES % (AUTO) 8.6 %; NEUTROPHILS # (AUTO) 3.8 10^3/uL (1.5-6.6); NEUTROPHILS % (AUTO) 54.3 %; PLT - PLATELET COUNT 202 10^3/uL (130-450); RED BLOOD COUNT 4.53 10^6/uL (4.70-6.10); RED CELL DISTRIBUTION WIDTH 12.8 % (12.0-15.0); WHITE BLOOD COUNT 7.1 x10^3/uL (4.8-10.8)
[2024-03-04] MEDS ORDERED: iohexoL-300 100 ML VIAL ONE (16:54)
[2024-03-04 17:03] LABS: ALBUMIN 4.7 g/dL (3.2-5.5); ALBUMIN/GLOBULIN RATIO 1.7 (1.0-2.2); BILIRUBIN,TOTAL 1.2 mg/dL (0.2-1.0); CALCIUM 9.8 mg/dL (8.5-10.3); MAGNESIUM 1.9 mg/dL (1.7-2.3); TOTAL PROTEIN 7.5 g/dL (6.4-8.9)
--- NOTE | 2024-03-04 17:36 | ED Physician Documentation ---
History of Present Illness - Stated complaint Stated Complaint: FALL, RT SIDE BACK INJ - Chief complaint Chief Complaint: Back Pain - Additonal information Additional information: 68-year-old male with history of hypertension, A-fib, sleep apnea with CPAP use, GERD presents to the emergency department for right posterior rib pain. Patient is not on blood thinners. Patient fell last February 22 he was attempting to get off of a boat fell backwards onto his back and hit his posterior right ribs on ice chest. He did not hit his head he had no loss of consciousness. He says overall he has been doing well with just Tylenol but today he has been having increased sharp shoots of pain to his right posterior rib region. Denies any shortness of breath or chest pain no nausea or vomiting no recent illnesses. PD PAST MEDICAL HISTORY - Past Medical History Past Medical History: Yes Cardiovascular: Hypertension, Atrial fibrillation Respiratory: Shortness of breath, Sleep apnea, CPAP use Endocrine/Autoimmune: None GI: GERD, Colon polyps, Chronic diarrhea, Other : Kidney stones HEENT: None Psych: Anxiety, Obsessive compulsive disorder Musculoskeletal: Osteoarthritis, Chronic back pain Derm: None - Past Surgical History Past Surgical History: Yes General: Colonoscopy, Other Ortho: Hip replacement, Arthroscopic surgery Cardiovascular: Other - Present Medications Home Medications: Ambulatory Orders Medication Instructions Recorded Confirmed ALPRAZolam [Xanax] 0.5 mg PO DAILY 01/06/15 01/06/15 Cholestyramine [Questran] 4 mg PO DAILY 01/06/15 01/06/15 Esomeprazole Magnesium [Nexium] 1 tab PO DAILY 01/06/15 01/06/15 Fluticasone [Flonase] 2 spray ROX DAILY 01/06/15 01/06/15 HYDROcodone/ACET 7.5/325 [[place] 1 tab PO DAILY 01/06/15 01/06/15 7.5/325] PARoxetine [Paxil] 20 mg PO DAILY 01/06/15 01/06/15 atenoloL [Atenolol] 1 tab PO DAILY 01/06/15 01/06/15 Amox/Clav 875/125 [Augmentin] 1 each PO Q12H #14 tablet 07/20/23 Benzonatate [Tessalon] 100 mg PO TID PRN #30 cap 07/20/23 predniSONE [Deltasone] 40 mg PO DAILY 5 Days #10 tablet 07/20/23 Lidocaine Patch 5% [Lidoderm Patch] 1 each TOP DAILY #10 patch 03/04/24 - Allergies Allergies/Adverse Reactions: Allergies Allergy/AdvReac Type Severity Reaction Status Date / Time nitroglycerin AdvReac Unknown Verified 03/04/24 15:32 - Social History Does the pt smoke?: No Smoking Status: Never smoker Does the pt drink ETOH?: No Does the pt have substance abuse?: No - Immunizations Immunizations are current?: Yes - POLST Patient has POLST: No PD ED PE NORMAL - Vitals Vital signs reviewed: Yes - General General: Alert and oriented X 3, No acute distress, Well developed/nourished - HEENT HEENT: Atraumatic, PERRL, EOMI - Back Back: No spinal TTP, Other (right posterior rib pain, localized tenderness to around rib #8 and 9) Results - Vitals Vitals: Vital Signs - 24 hr 03/04/24 03/04/24 15:27 18:27 Temperature 36.4 C L 36.5 C Heart Rate 85 82 Respiratory 22 16 Rate Blood Pressure 159/79 H 138/86 H O2 Saturation 98 100 Oxygen O2 Source Room air - Labs Labs: Laboratory Tests 03/04/24 03/04/24 16:42 16:42 WBC 7.1 RBC 4.53 L Hgb 15.2 Hct 44.6 MCV 98.5 H MCH 33.6 H MCHC 34.1 RDW 12.8 Plt Count 202 MPV 9.2 Neut # (Auto) 3.8 Lymph # (Auto) 2.2 [place] # (Auto) 0.6 Eos # (Auto) 0.4 Baso # (Auto) 0.1 Absolute Nucleated RBC 0.00 Nucleated RBC % 0.0 Sodium 139 Potassium 4.0 Chloride 104 Carbon Dioxide 27 Anion Gap 8.0 BUN 15 Creatinine 1.0 Estimated GFR (MDRD) 74 L Glucose 104 Calcium 9.8 Magnesium 1.9 Total Bilirubin 1.2 H AST 17 ALT 19 Alkaline Phosphatase 89 Total Protein 7.5 Albumin 4.7 Globulin 2.8 Albumin/Globulin Ratio 1.7 Lipase 39 - Rads (name of study) Chest CT with con Relevant Findings:: Final report received, EMP independent interpretation of test, Other (Mild deformity of the left anterolateral fourth rib. appears chronic) PD Medical Decision Making - ED course ED course: 68-year-old male presents emergency department for left posterior rib pain. He has no shortness of breath no difficulty breathing and vitals are stable he is satting at 100% on room air. A CT was complete for further evaluation of possible rib fracture given his age and chest CT with con did not reveal any acute abnormal findings. It did show some rib deformities at the fourth anterior lateral rib but this is not where patient is experiencing pain so this is most likely an old rib fracture that has healed. I believe that patient is experiencing pain from a deep contusion. He was given a Toradol shot here in the emergency department and did report significant alleviation of pain with this Toradol shot. He was offered a small prescription of narcotics but patient kindly declined and said that he would like to continue with Tylenol at home and was also told to add in ibuprofen or Aleve for additional pain alleviation and a prescription of lidocaine patches was sent to patient's preferred pharmacy. Return precautions given all questions answered patient safe for discharge. Departure - Departure Disposition: 01 Home, Self Care Clinical Impression: Contusion of rib on right side Instructions: ED Contusion Chest Wall Prescriptions: Lidocaine Patch 5% [Lidoderm Patch] 1 each TOP DAILY #10 patch Comments: Thank you for trusting us with your care. We have given you a 15 mg Toradol injection here in the emergency department to help with your pain I have sent a prescription of lidocaine patches to your preferred pharmacy. CT shows that you have what appears to be a chronic right fourth rib deformity. Overall appears to be chronic as and you have possibly broken this years ago. I believe that the posterior rib pain, the rib pain on your back is most likely due to a contusion also known as a deep bruise. You can take 1000 mg of Tylenol every 8 hours and you can also take up to 800 mg of ibuprofen every 6 hours, do not take ibuprofen for longer than 14 days. Please follow-up with your primary care provider let them know about today's ER visit come back and if you are starting to have any worsening symptoms shortness of breath chest pain or any other concerning symptoms. Discharge Date/Time: 03/04/24 18:27
--- NOTE | 2024-03-04 17:45 | CT Report ---
PROCEDURE: Chest W INDICATIONS: right posterior severe rib pain, SOA CONTRAST: Omni 300 100ml TECHNIQUE: After the administration of intravenous contrast, a CT scan of the chest was performed. Images were recorded and evaluated at appropriate window settings. Reformats: axial MIP of the chest, coronal and sagittal. For radiation dose reduction, the following was used: automated exposure control, adjustme nt of mA and/or kV according to patient size. COMPARISON: None. FINDINGS: Image quality: Diagnostic. Chest wall and lower neck: No thyroid nodule which requires sonographic follow up. No breast mass. No axillary or supraclavicular adenopathy by size. Lungs and pleura: No consolidation. No pleural effusions. No pneumothorax. No suspicious pulmonary n odules which require follow up. Mediastinum: Heart size is normal. No pericardial effusion. No large vessel abnormality. No mediastin al adenopathy by size criteria. Bones: No aggressive osseous abnormality. Mild deformity anterior lateral left fourth rib. Upper Abdomen: Scattered simple hepatic cysts.. IMPRESSION: Mild deformity of the left anterolateral fourth rib. It overall has a chronic appearance. However, re commend correlation of point tenderness is no priors are available for comparison. Reviewed by: Michelle Puga MD on 03/04/2024 5:44 PM PDT Approved by: Michelle Puga MD on 03/04/2024 5:44 PM PDT Station ID: [id number]
[2024-03-04] MEDS: KETOROLAC 15 MG/ML VIAL IVP STA (18:21)
[2024-03-04 18:39] VITALS: BP 138/86; O2SAT 100
[2024-03-04] MEDS: iohexoL-300 100 ML VIAL IVP ONE (21:03)
== END 2024-03-04 18:27 | disposition home or self-care (01) ==
LOC: ED 15:17
DX: S20.211A Contusion of right front wall of thorax, initial encounter (principal); W18.39XA Other fall on same level, initial encounter; Y92.814 Boat as the place of occurrence of the external cause; I10 Essential (primary) hypertension; I48.91 Unspecified atrial fibrillation; G47.30 Sleep apnea, unspecified; Z87.442 Personal history of urinary calculi; Z86.010 Personal history of colon polyps; Z79.899 Other long term (current) drug therapy
CPT/HCPCS: 36415; 71260; 80053; 83690; 83735; 85025; 96374; 99284; Q9967